=== PATIENT | female | born 1955 | race Two or more races ===

== ENCOUNTER 2017-08-13 06:14 | Emergency (ER) | payer OTHER ==
[~2017-08-13] VITALS: Ht 157.5 cm; Wt 78.0 kg
[2017-08-13 06:16] VITALS: Ht 157.5 cm; Wt 78.0 kg
[2017-08-13] MEDS ORDERED: SOD CHLORIDE 0.9% 500 ML IV STA (06:48)
[2017-08-13] MEDS ORDERED: ONDANSETRON 4 MG INJ IV STA (06:48)
[2017-08-13] MEDS ORDERED: FAMOTIDINE 20 MG INJ IV STA (06:48)
[2017-08-13] MEDS ORDERED: LIDOCAINE/MYLANTA 40 ML BTL PO STA (06:48)
[2017-08-13] MEDS ORDERED: morphine 4 MG/ML VIAL IV STA (06:48)
[2017-08-13 07:00] VITALS: BP 140/91; PULSE 86; RESP 20; TEMP 98.3
--- NOTE | 2017-08-13 07:13 | ERA ---
ER Documentation Chief Complaint Date/Time DATE: 08/13/17 TIME: 07:10 Chief Complaint C/O MID EPIGASTRIC PAIN RADIATING TO BACK X 2 DAYS. (+) N/V. HPI This is a 62-year-old female who presents with her family member who is interpreting for her. The patient has a history of what appears to be peptic ulcer disease and possible arthritis for which she takes Celebrex. The patient presents with 2 days of epigastric abdominal pain radiating to her back. The pain is moderate, constant and gradual in onset. She denies any chest pain or shortness of breath, no pleuritic pain, no fevers or chills. The patient has a prior history of appendectomy. She is passing flatus. No fevers or sick contacts. ROS All systems reviewed and are negative except as per history of present illness. Medications Home Meds Reported Medications Cholecalciferol (Vitamin D3) 5,000 Unit Tablet, 5000 UNIT PO DAILY, TAB 08/13/17 Omeprazole* (Omeprazole*) 20 Mg Capsule.dr, 20 MG PO BID, #60 CAP 08/13/17 Allergies Allergies: Coded Allergies: No Known Allergy (Unverified , 08/13/17) PMhx/Soc Medical and Surgical Hx: pt denies Medical Hx FmHx Family History: No diabetes Physical Exam Vitals Vital Signs Date Time Temp Pulse Resp B/P Pulse Ox O2 Delivery O2 Flow Rate FiO2 08/13/17 06:16 97.8 91 20 171/83 98 Physical Exam General: Slightly uncomfortable Head: Normocephalic, atraumatic Eyes: Pupils equally reactive, EOM intact ENT: Moist mucous membranes Neck: Supple, no lymphadenopathy Respiratory: Lungs clear bilaterally, no distress Cardiovascular: RRR, no murmurs, rubs, or gallops Abdominal: Soft, localized tenderness to the epigastrium, negative Rodriguez sign, no peritonitis : Deferred MSK: No edema, no unilateral swelling, 5/5 strength Neurologic: Alert and oriented, moving all extremities, normal speech, no focal weakness, no cerebellar signs Skin: No rash Psych: Normal mood Result Diagram: 08/13/1755 08/13/1755 Results 24 hrs Laboratory Tests Test 08/13/17 06:55 White Blood Count 14.210^3/ul Red Blood Count 4.7710^6/ul Hemoglobin 13.6g/dl Hematocrit 39.3% Mean Corpuscular Volume 82.4fl Mean Corpuscular Hemoglobin 28.5pg Mean Corpuscular Hemoglobin Concent 34.6g/dl Red Cell Distribution Width 13.1% Platelet Count 85487^3/UL Mean Platelet Volume 9.4fl Neutrophils % 86.9% Lymphocytes % 10.0% Monocytes % 2.5% Eosinophils % 0.0% Basophils % 0.1% Nucleated Red Blood Cells % 0.0/100WBC Neutrophils # 12.310^3/ul Lymphocytes # 1.410^3/ul Monocytes # 0.410^3/ul Eosinophils # 0.010^3/ul Basophils # 0.010^3/ul Nucleated Red Blood Cells # 0.010^3/ul Sodium Level 140mmol/L Potassium Level 3.9mmol/L Chloride Level 109mmol/L Carbon Dioxide Level 22mmol/L Anion Gap 13 Blood Urea Nitrogen 14mg/dl Creatinine 0.65mg/dl Glucose Level 139mg/dl Calcium Level 9.8mg/dl Total Bilirubin 0.3mg/dl Direct Bilirubin 0.00mg/dl Indirect Bilirubin 0.3mg/dl Aspartate Amino Transf (AST/SGOT) 26IU/L Alanine Aminotransferase (ALT/SGPT) 43IU/L Alkaline Phosphatase 100IU/L Troponin I < 0.012ng/ml Total Protein 7.9g/dl Albumin 4.2g/dl Globulin 3.70g/dl Albumin/Globulin Ratio 1.13 Lipase 119U/L Current Medications Medications (Trade) Dose Ordered Sig/Patricia Route PRN Reason Start Time Stop Time Status Last Admin Dose Admin Sodium Chloride (NS) 500 ml @ 500 mls/hr Q1H STAT IV 08/13/17 06:48 08/13/17 07:47 DC 08/13/17 06:48 Morphine Sulfate (morphine) 4 mg ONCE STAT IV 08/13/17 06:48 08/13/17 06:49 DC 08/13/17 08:03 Ondansetron HCl (Zofran Inj) 4 mg ONCE STAT IV 08/13/17 06:48 08/13/17 06:49 DC 08/13/17 08:03 Famotidine (Pepcid Iv) 20 mg ONCE STAT IV 08/13/17 06:48 08/13/17 06:49 DC 08/13/17 08:03 Miscellaneous Medication (Gi Cocktail (2)) 40 ml ONCE STAT PO 08/13/17 06:48 08/13/17 06:49 DC 08/13/17 08:02 Procedures/MDM EKG, MONITORS, & DIAGNOSTIC IMAGING: EKG: I reviewed and interpreted a 12-lead EKG. Rhythm: Normal sinus rhythm Ectopy: None Intervals: No abnormalities ST segments: No elevations or depressions T waves: No contiguous inversions Chest x-ray: I reviewed and interpreted a 1 view of the chest Mediastinum: No enlargement Cardiac silhouette: No cardiomegaly Airspace: Clear lung payne bilaterally without evidence of pneumothorax Bones: No evidence of fracture CT abdomen and pelvis: IMPRESSION: 1. Chronic bilateral renal cortical scarring is noted. No urolithiasis or obstructive uropathy is seen. 2. No mass, lymphadenopathy, or focal acute inflammatory process is identified. RPTAT: PP LAB INTERPRETATION: Nonspecific leukocytosis, normal hepatobiliary function, negative troponin MEDICAL DECISION MAKING: The patient presents with epigastric abdominal pain radiating to her back. 2 days of symptoms. Based on her medications and history I believe she has a known diagnosis of either gastritis or peptic ulcer disease. I believe this is an exacerbation of that process based on her description of the symptoms. I do not believe this is consistent with acute cholecystitis or other acute intra- abdominal process such as aortic dissection. The patient does have risk factors for bowel obstruction and did have a single episode of nonbloody nonbilious emesis. No signs or symptoms of upper GI bleed. However, given the patient's age, symptoms I believe she would benefit from laboratory testing, CT imaging of abdomen and pelvis. Low clinical concern for cardiac etiology though EKG and troponin would be appropriate given epigastric component. ER COURSE: The patient was given IV fluids, Pepcid, Maalox, morphine. On reexamination the patient has complete resolution of her symptoms. On repeat abdominal exam is benign. I spoke to the patient's son and discussed outpatient follow-up with gastroenterology, return precautions. The patient is currently taking a PPI and Carafate, further medication is not indicated at this time. I kept the patient and/or family informed of laboratory and diagnostic imaging results throughout the emergency room course. DISPOSITION PLAN: We discussed follow up with the patient's primary care doctor within 24 to 48 hours as needed. We also discussed return to the emergency room for worsening symptoms or worsening condition. Outpatient referral: Gastroenterology Discharge Medications: Continue Carafate and PPI Departure Diagnosis: Primary Impression: Epigastric abdominal pain Condition: Good DEUCE SALMERON MD Aug 13, 2017 07:13
[2017-08-13] MEDS ORDERED: OMEP20CA16 PO (07:17)
[2017-08-13] MEDS ORDERED: CHOL500010 PO (07:18)
--- NOTE | 2017-08-13 07:20 | RADRPT ---
PROCEDURE: XR Chest. CLINICAL INDICATION: Pain TECHNIQUE: Single AP view of the chest were obtained COMPARISON: None FINDINGS: The heart and mediastinum are within normal limits. The pulmonary vasculature are unremarkable. The aorta demonstrates atherosclerotic calcifications. There is no lung consolidation, pleural effusio n or pneumothorax. Degenerative changes are seen within the thoracic spine. There is no acute osse ous abnormality. IMPRESSION: No acute disease. RPTAT: AA .Genesis Velazquez MD, Date Time Electronically viewed and signed by .Genesis Velazquez MD, on 08/13/2017 07:20 .Chip/
[2017-08-13 07:21] LABS: BASOPHILS % 0.1 % (0.0-2.0); HEMATOCRIT 39.3 % (37.0-47.0); HEMOGLOBIN 13.6 g/dl (12.0-16.0); LYMPHOCYTES # 1.4 10^3/ul (0.8-2.9); MEAN CORPUSCULAR HEMOGLOBIN 28.5 pg (29.0-33.0); MEAN CORPUSCULAR HGB CONC 34.6 g/dl (32.0-37.0); MEAN CORPUSCULAR VOLUME 82.4 fl (82.0-101.0); MEAN PLATELET VOLUME 9.4 fl (7.4-10.4); MONOCYTE # 0.4 10^3/ul (0.3-0.9); MONOCYTES % 2.5 % (0.0-11.0); NEUTROPHIL # 12.3 10^3/ul (1.6-7.5); NEUTROPHILS % 86.9 % (39.0-77.0); PLATELET COUNT 425 10^3/UL (140-415); RED BLOOD COUNT 4.77 10^6/ul (4.20-5.40); RED CELL DISTRIBUTION WIDTH 13.1 % (11.5-14.5); WHITE BLOOD COUNT 14.2 10^3/ul (4.8-10.8)
--- NOTE | 2017-08-13 07:38 | RADRPT ---
PROCEDURE: CT Abdomen and Pelvis without contrast. CLINICAL INDICATION: Epigastric and left-sided pain TECHNIQUE: CT of the abdomen and pelvis was performed on a multi-detector scanner without IV contr ast. Coronal and sagittal images were reformatted from the axial data set. One or more of the foll owing dose reduction techniques were used: automated exposure control, adjustment of the mA and/or k V according to patient size, use of iterative reconstruction technique. CTDI = 12.48 mGy. DLP = 719 .7 mGy-cm. COMPARISON: None. FINDINGS: The lung bases are clear. The heart size is normal, without pericardial effusion. Liver, gallbladd er, biliary tree, pancreas, spleen and adrenal glands are unremarkable. Chronic bilateral renal vickie ical scarring is noted. No urolithiasis or obstructive uropathy is identified. The stomach is grossl y unremarkable. The aorta is of normal caliber. There is no retroperitoneal lymphadenopathy. The bharti hepatis reg ion is clear. No bowel obstruction, free intraperitoneal air or abscess is identified. There is no diverticulosis, diverticulitis, colitis or appendicitis. Urinary bladder, uterus and adnexa are grossly unremarkabl e. No pelvic mass, free fluid or lymphadenopathy is seen. The surrounding osseous structures are remarkable for degenerative enthesopathy of the spine. No os teolytic or osteoblastic lesion is detected. IMPRESSION: 1. Chronic bilateral renal cortical scarring is noted. No urolithiasis or obstructive uropathy is s een. 2. No mass, lymphadenopathy, or focal acute inflammatory process is identified. RPTAT: PP .Jr Mendez MD, Date Time Electronically viewed and signed by .Jr Mendez MD, MD on 08/13/2017 07:37 .R/
[2017-08-13 07:40] LABS: ALANINE AMINOTRANSFERASE 43 IU/L (13-69); ALBUMIN 4.2 g/dl (3.3-4.9); ALBUMIN/GLOBULIN RATIO 1.13; ALKALINE PHOSPHATASE 100 IU/L (42-121); ANION GAP 13 (8-16); ASPARTATE AMINO TRANSFERASE 26 IU/L (15-46); BILIRUBIN,INDIRECT 0.3 mg/dl (0-1.1); BILIRUBIN,TOTAL 0.3 mg/dl (0.2-1.3); BLOOD UREA NITROGEN 14 mg/dl (7-20); CALCIUM 9.8 mg/dl (8.4-10.2); CARBON DIOXIDE 22 mmol/L (21-31); CHLORIDE 109 mmol/L (97-110); CREATININE 0.65 mg/dl (0.44-1.00); GLUCOSE 139 mg/dl (70-220); POTASSIUM 3.9 mmol/L (3.5-5.1); SODIUM 140 mmol/L (135-144); TOTAL PROTEIN 7.9 g/dl (6.1-8.1)
[2017-08-13 07:57] LABS: TROPONIN-I < 0.012 ng/ml (0.00-0.12)
== END 2017-08-13 08:53 | disposition home or self-care (01) ==
LOC: FTE 06:14 → E/R 08:53
DX: R10.13 Epigastric pain (principal); R40.2252 Coma scale, best verbal response, oriented, at arrival to emergency department; R11.2 Nausea with vomiting, unspecified; R40.2142 Coma scale, eyes open, spontaneous, at arrival to emergency department; R40.2362 Coma scale, best motor response, obeys commands, at arrival to emergency department
CPT/HCPCS: 36415; 71010; 74176; 80053; 83690; 84484; 85025; 93005; 96374; 96375; J2270; J2405; J7040; Z7502; Z7610